=== PATIENT | male | born 1940 | race Caucasian/White ===

== ENCOUNTER → 2023-06-30 | Outpatient (CLI) | payer MEDICARE ==
[~2023-06-30] MED LIST: AMOXICILLIN 8751 TAB PO; ELIQUIS 5MG PO; GLUCOSAMINE & C1 TAB PO; MOTRIN 200200 MG/TAB PO; MULTI VITAMINS1 TAB PO; NORVASC 5MG5 MG/TAB PO; PAMELOR 10MG10 MG PO; PRAVACHOL 40MG40 MG PO; PRILOSEC 20MG20 MG PO; PRINIVIL2.5 MG PO; ROBINUL FORTE2 MG PO; ROXICODONE 55 MG/TAB PO; SINEMET 25/101 UDTAB PO; SYSTANE 0.4%-0.1 SOL OU
[2023-06-30 11:56] LABS: BASO % 0.4 % (0.0-2.0); EOS % 0.3 % (0.0-4.0); GRAN # 5.9 K/mm3 (1.4-6.5); GRAN % 87.5 % (42.2-75.2); LYMPH # 0.4 K/mm3 (1.2-3.4); LYMPH % 5.4 % (20.0-51.0); MEAN CELL VOLUME 94 fl (80.0-100.0); MEAN CORPUSCULAR HEMOGLOBIN 31 pg (27-31); MEAN CORPUSCULAR HGB CONC 33 g/dl (33.0-37.0); MEAN PLATELET VOLUME 11.1 fl (7.4-10.4); MONO # 0.4 K/mm3 (0.1-0.6); MONO % 6.1 % (1.7-9.3); PLATELET COUNT 132 K/mm3 (130-400); RED BLOOD COUNT 3.59 M/mm3 (4.20-5.60); REDCELL DISTRIBUTION WIDTH-CV 13.6 % (11.5-14.5)
[2023-06-30 11:57] LABS: HEMATOCRIT 33.7 % (42.0-52.0)
[2023-06-30 12:03] LABS: ALKALINE PHOSPHATASE 49 U/L (40-150); ANION GAP 12 mmol/L (7-16); AST,SGOT 16 U/L (5-34); BILIRUBIN,TOTAL 1.4 mg/dL (0.2-1.2); BLOOD UREA NITROGEN 47 mg/dL (8-26); CALCIUM 8.9 mg/dL (8.4-10.2); CARBON DIOXIDE 20 mmol/L (23-31); CHLORIDE 106 mmol/L (98-107); GLUCOSE 114 mg/dL (70-99); MAGNESIUM 1.9 mg/dL (1.6-2.6); POTASSIUM 4.9 mmol/L (3.5-4.5); SODIUM 138 mmol/L (136-145); TOTAL PROTEIN 6.5 gm/dL (6.2-8.1)
[2023-06-30 12:06] LABS: ALANINE AMINOTRANSFERASE < 6 U/L (0-55)
== END ==
LOC: ZCOL.LAB 11:45
DX: R53.1 Weakness (principal)

== ENCOUNTER 2023-12-03 16:29 | Inpatient (IN) | payer MEDICARE ==
[~2023-12-03] VITALS: Ht 177.8 cm; Wt 59.1 kg
[2023-12-03 16:45] LABS: URINE APPEARANCE CLEAR (CLEAR/HAZY); URINE BLOOD 3+ (NEGATIVE); URINE COLOR Dark Yellow (YELLOW); URINE GLUCOSE NEGATIVE (NEGATIVE); URINE KETONE TRACE (NEGATIVE); URINE NITRATE NEGATIVE (NEGATIVE); URINE PROTEIN(semi-quant) 2+ (NEGATIVE)
[2023-12-03] MEDS ORDERED: NS 1,000 ML IV ONE (16:45)
[2023-12-03 16:47] LABS: COLLECTION METHOD CATHETER
[2023-12-03] MEDS ORDERED: SINEMET 25/101 UDTAB PO (17:02)
[2023-12-03 17:15] LABS: PROTHROMBIN TIME 10.7 SECONDS (9.7-12.8)
[2023-12-03 17:17] LABS: PARTIAL THROMBOPLASTIN TIME 20.7 SECONDS (26.0-37.0)
[2023-12-03] MEDS ORDERED: ELIQUIS 5MG PO (17:18)
[2023-12-03] MEDS ORDERED: NORVASC 5MG5 MG/TAB PO (17:19)
[2023-12-03 17:28] LABS: ALBUMIN 4.1 gm/dL (3.4-4.8); BILIRUBIN,TOTAL 2.3 mg/dL (0.2-1.2); CALCIUM 9.8 mg/dL (8.4-10.2); CREATININE, serum 1.4 mg/dL (0.72-1.25); MAGNESIUM 2.1 mg/dL (1.6-2.6); POTASSIUM 4.4 mmol/L (3.5-4.5); TOTAL PROTEIN 7.2 gm/dL (6.2-8.1)
[2023-12-03 17:39] LABS: TROPONIN-I 0.034 ng/mL (0.00-0.033)
[2023-12-03] MEDS ORDERED: Ondansetron 4 MG/2 ML VIAL IV PRN (20:30)
[2023-12-03] MEDS ORDERED: Acetaminophen 325 MG TAB PO PRN (20:30)
[2023-12-03] MEDS ORDERED: Heparin 5,000 UNITS/ML 1 ML VIAL SQ SCH (21:00)
[2023-12-03] MEDS ORDERED: NS 1,000 ML IV SCH (21:00)
[2023-12-03 21:13] VITALS: BP 154/73; PULSE 72; TEMP 98.3
--- NOTE | 2023-12-03 22:49 | NUR ---
LAB CALLED WITH A TROPONIN OF 0.041. ANGELINA WATKINS NOTIFIED OF VALUE AT 10:45 PM. NO NEW ORDERS AT THIS TIME.
--- NOTE | 2023-12-03 23:06 | NUR ---
THE PATIENT ARRIVED VIA ED CART ACCOMPANIED BY ED STAFF. THE PATIENT WAS ORIENTED TO SELF, BUT COULD NOT STATE HIS BIRTHDAY. THE PATIENT DID NO FOLLOW COMMANDS. THE PATIENT KNEW HE WAS IN [place] AND THE PRESIDENTS NAME. THE PATIENT COULD NOT REMEMBER WHAT HAPPENED OR WHERE HE WAS EXACTLY. NO S/S OF ACUTE DISTRESS NOTED. CALL LIGHT WITHIN REACH, BED IN LOW POSTION, BED ALARM ON.
[2023-12-03 23:22] VITALS: BP 153/8; PULSE 75; TEMP 98.1
[2023-12-04] VITALS (11 sets, daily range): BP systolic 123–153; BP diastolic 63–85; PULSE 66–88; TEMP 98.1–99.6
[2023-12-04 07:01] LABS: BASO % 0.2 % (0.0-2.0); GRAN # 13.5 K/mm3 (1.4-6.5); GRAN % 89.8 % (42.2-75.2); HEMOGLOBIN 12.4 g/dl (13.5-18.0); LYMPH # 0.5 K/mm3 (1.2-3.4); LYMPH % 3.5 % (20.0-51.0); MEAN CELL VOLUME 89 fl (80.0-100.0); MEAN CORPUSCULAR HEMOGLOBIN 30 pg (27-31); MEAN CORPUSCULAR HGB CONC 34 g/dl (33.0-37.0); MEAN PLATELET VOLUME 11.2 fl (7.4-10.4); MONO # 0.9 K/mm3 (0.1-0.6); PLATELET COUNT 120 K/mm3 (130-400); RED BLOOD COUNT 4.11 M/mm3 (4.20-5.60); REDCELL DISTRIBUTION WIDTH-CV 13.9 % (11.5-14.5)
[2023-12-04 07:15] LABS: HEMATOCRIT 36.5 % (42.0-52.0)
[2023-12-04 07:18] LABS: ALBUMIN 3.2 gm/dL (3.4-4.8); BILIRUBIN,TOTAL 1.5 mg/dL (0.2-1.2); CREATININE, serum 1.25 mg/dL (0.72-1.25); POTASSIUM 4.1 mmol/L (3.5-4.5); TOTAL PROTEIN 5.9 gm/dL (6.2-8.1)
[2023-12-04 07:19] LABS: CHOLESTEROL RISK RATIO 1.7
[2023-12-04 07:39] LABS: THYROID STIMULATING HORMONE 1.342 uIU/mL (0.350-4.940)
--- NOTE | 2023-12-04 08:00 | NUR ---
PATIENT IS ORIENTED X3, NOT X4. PATIENT ORIENTED TO PERSON, PLACE AND SOME OF HIS SITUATION. PATIENT CONFUSED ON TIME OF DAY AND HIS WHOLE SITUATION IN THE HOSPITAL, FORGETFUL AT TIMES. NOTED LOW GRADE TEMP OF 99.6, GAVE PRN TYLENOL PER ORDERS WITH AM MEDS, SEE MAR. ALL OTHER VSS ON TELE. IV FLUIDS INFUSING VIA PUMP INTO RIGHT FORARM IV. NPO. REGALADO TO DD. UPPER CUTTER OUT REPORTED LOOSE BM X2. NOTIFIED HOSPITALIST OF TROP OF 0.050, NO NEW ORDERS. SKIN ISSUES NOTED, SEE SHIFT ASSESSMENT. PATIENT WAS FOUND DOWN FOR A UNKNOWN AMOUNT OF TIME. PATIENT IS WEAK, UNSTEADY AND HAS HX OF PARKINSONS. PT/OT CONSULTED. HEAD TO TOE ASSESSMENT COMPLETE. CALL LIGHT IN REACH. BED ALARM ON.
[2023-12-04] MEDS ORDERED: Metoprolol Tartrate 25 MG TAB PO SCH (09:00)
--- NOTE | 2023-12-04 17:00 | NUR ---
PATIENT HAD 3, SOFT-FORMED, MURRY-BARBARA COLORED STOOLS TODAY VIA BED DUNCAN. PATIENT WAS TO WEAK TO GET TO BEDSIDE COMMODE AND C/O CHRONIC PAIN IN HIS LEFT HIP THAT DOESN'T BOTHER HIM AT REST.
--- NOTE | 2023-12-04 17:45 | NUR ---
EKG OBTAINED BY RT AND HOSPITALIST NOTIFIED TO READ. EKG READS ACUTE ND. HOSPITALIST REVIEWING, NO ORDERS AT THIS TIME. PATIENT ASYMPTOMOMATIC. TROPONINES TRENDING, SEE LABS
[2023-12-04] MEDS ORDERED: Magnes Hydrox (MOM) 80 MG/ML 30 ML CUP PO ONE (18:00)
[2023-12-04] MEDS ORDERED: Sennosides/Docusate 8.6-50 MG TAB PO SCH ×2 (21:00)
[2023-12-05] VITALS (11 sets, daily range): BP systolic 131–149; BP diastolic 64–84; PULSE 68–91; TEMP 97.2–98.5
--- NOTE | 2023-12-05 00:58 | NUR ---
NURSING SHIFT ASSESSMENT COMPLETED. THE PATIENT WAS ORIENTED TO SELF, BUT NOT TO TIME, PLACE OR SITUATION. THE PTS BROTHER WAS AT THE BEDSIDE. THE PATIENT HAD A DINNER TRAY AT THE BEDSIDE AND WAS UNABLE TO FEED HIMSELF. THE CHICKEN BREAST SANDWICH WAS TO TOUGH FOR THE PATIENT TO EAT HIS DENTATION IS POOR. THE PATIENT ATE ALL OF THE GRAPES AND SOME APPLESAUCE AND DRANK ABOUT 1/2 OF AN ENSURE. GOOD ORAL CARE WAS PROVIDED PRIOR TO FEEDING THE PATIENT. THE PATIENT TOOK HIS PILLS WHOLE IN APPLESAUCE BETTER THAN ONE AT A TIME WITH A SIP OF WATER. THE PLAN OF CARE WAS SHARED WITH THE BROTHER. THE BED WAS IN THE LOW POSITION, BED ALARM ON, CALL LIGHT WITHIN REACH, HOWEVER I DON'T THINK THE PATIENT WILL USE THE CALL LIGHT.
[2023-12-05 07:54] LABS: HEMOGLOBIN 11.5 g/dl (13.5-18.0); MEAN CELL VOLUME 91 fl (80.0-100.0); MEAN CORPUSCULAR HEMOGLOBIN 31 pg (27-31); MEAN CORPUSCULAR HGB CONC 34 g/dl (33.0-37.0); MEAN PLATELET VOLUME 10.8 fl (7.4-10.4); PLATELET COUNT 95 K/mm3 (130-400); RED BLOOD COUNT 3.77 M/mm3 (4.20-5.60); REDCELL DISTRIBUTION WIDTH-CV 14.4 % (11.5-14.5)
[2023-12-05 07:58] LABS: HEMATOCRIT 34.1 % (42.0-52.0)
[2023-12-05 08:17] LABS: ALBUMIN 2.9 gm/dL (3.4-4.8); BILIRUBIN,TOTAL 1.6 mg/dL (0.2-1.2); CREATININE, serum 1.05 mg/dL (0.72-1.25); POTASSIUM 4.2 mmol/L (3.5-4.5); TOTAL PROTEIN 5.6 gm/dL (6.2-8.1)
[2023-12-05 08:48] LABS: TROPONIN-I 0.027 ng/mL (0.00-0.033)
[2023-12-05] MEDS ORDERED: Polyethylene Glycol 3350 17 GM PDS PO SCH (09:00)
[2023-12-05] MEDS ORDERED: 1/2 NS 1,000 ML IV SCH (09:15)
[2023-12-05] MEDS ORDERED: Amoxicillin/Clavulanate K+ 875/125 MG TAB PO SCH (09:17)
[2023-12-05 09:32] LABS: BAND 37 % (0-10); LYMPHOCYTE 2 % (20.0-51.0); METAMYELOCYTE 2 % (0-0); NEUTROPHILS 58 % (42.0-75.2); PLATELET ESTIMATE DECREASED (NORMAL)
--- NOTE | 2023-12-05 10:07 | NUR ---
Floor Tiling Professional met with patient and brother at bedside to discuss discharge planning. Patient oriented to person and place. Patient stated he doesn't remember falling. Brother verified demographic information. Patient resides at [facility] for the past 1-1/2 to 2 years, sees Dr. Sin as his PCP and uses [facility] mail order pharmacy. Patient next of kin and DPOA is brothaaron Wolf ([phone]). Patient is normally independent with ADLs, has a FWW that he uses as needed. PT recommendation is for IPR vs SNF. This SW spoke with Maryann at [facility] who reported they do not have male skilled bed avaiability at this time. Discharge: IPR vs SNF
--- NOTE | 2023-12-05 10:26 | NUR ---
PT LAYING IN BED UPON ENTERING, BROTHER AT BEDSIDE. ASSESSMENT DONE, MEDS GIVEN PER ORDER IN APPLESAUCE. PT DENIES PAIN BUT MOANING WHEN LEFT HAND IS TOUCHED. PT ABLE TO ANSWER ORIENTATION QUESTIONS BUT HAS CONFUSED SPEECH AND TRYING TO HAND HIS NURSE THINGS THAT ARENT IN HIS HAND. PT TALKING TO THIS NURSE WITH HIS EYES CLOSED. REGALADO DRAINING WITHOUT ISSUES. PT INCONTINENT OF STOOL. SACRUM RED, BARRIER CREAM APPLIED. NS @ 100 MLS/HR RUNNING IN RIGHT FOREARM. NS STOPPED AND CHANGED TO 1/2 NS @ 75 MLS/HR PER ORDER. ABRASIONS TO RIGHT CHEEK, MID STERNUM, AND RIGHT FLANK. PT HAS 1 BLISTER TO LATERAL SIDE OF EACH HEELM SKIN INTACT, MEPILEX PLACED AND HEELS FLOATED ON PILLOW. PT REPOSITIONED FROM HIS RIGHT SIDE TO LEFT SIDE. PT DENIES NEEDS. BROTHER ASKING ABOUT BROKEN BONES AND THIS NURSE NOTIFIED HIM OF ALL IMAGING DONE, NOTHING TO VISUALIZE LEFT HAND AND PT CURRENTLY DISPLAYING HAND PAIN. DR RUTH NOTIFIED AND HAND XRAY ORDERED. BED IN LOWEST POSITION, CALL LIGHT IN REACH, BED ALARM ON
--- NOTE | 2023-12-05 19:09 | NUR ---
REPORT GIVEN TO BRODIE CASTRO
[2023-12-06] VITALS (13 sets, daily range): BP systolic 126–176; BP diastolic 62–81; PULSE 68–92; TEMP 97.2–98.9
[2023-12-06 01:40] LABS: ARTERIAL BLD GAS O2 SATURATION 98.8 % (92-100); ARTERIAL BLD GAS TCO2 CT 21.6; ARTERIAL BLOOD GAS BASE EXCESS -0.2 (-2-2); ARTERIAL BLOOD GAS HCO3 20.8 meq/L (22-26); ARTERIAL BLOOD GAS PCO2 24.8 mmHg (35-45); ARTERIAL BLOOD GAS pH 7.54 (7.35-7.45)
[2023-12-06 01:41] LABS: ARTERIAL BLOOD GAS PO2 136.6 mmHg (80-100)
[2023-12-06 01:43] LABS: HEMOGLOBIN 11.7 g/dl (13.5-18.0); MEAN CELL VOLUME 90 fl (80.0-100.0); MEAN CORPUSCULAR HEMOGLOBIN 30 pg (27-31); MEAN CORPUSCULAR HGB CONC 33 g/dl (33.0-37.0); MEAN PLATELET VOLUME 10.6 fl (7.4-10.4); PLATELET COUNT 101 K/mm3 (130-400); RED BLOOD COUNT 3.91 M/mm3 (4.20-5.60); REDCELL DISTRIBUTION WIDTH-CV 14.4 % (11.5-14.5)
[2023-12-06 02:02] LABS: ALBUMIN 2.6 gm/dL (3.4-4.8); ALKALINE PHOSPHATASE 45 U/L (40-150); ANION GAP 8 mmol/L (7-16); AST,SGOT 42 U/L (5-34); BILIRUBIN,TOTAL 1.5 mg/dL (0.2-1.2); BLOOD UREA NITROGEN 29 mg/dL (8-26); CALCIUM 7.8 mg/dL (8.4-10.2); CARBON DIOXIDE 20 mmol/L (23-31); CHLORIDE 115 mmol/L (98-107); CREATININE, serum 0.96 mg/dL (0.72-1.25); GLUCOSE 116 mg/dL (70-99); POTASSIUM 4.3 mmol/L (3.5-4.5); SODIUM 143 mmol/L (136-145); TOTAL PROTEIN 5.5 gm/dL (6.2-8.1)
[2023-12-06 02:05] LABS: ALANINE AMINOTRANSFERASE < 6 U/L (0-55)
[2023-12-06 02:10] LABS: HEMATOCRIT 35.3 % (42.0-52.0)
[2023-12-06 02:58] LABS: BAND 32 % (0-10); EOSINOPHIL 1 % (0-4); LYMPHOCYTE 7 % (20.0-51.0); NEUTROPHILS 55 % (42.0-75.2)
[2023-12-06 02:59] LABS: PLATELET ESTIMATE DECREASED (NORMAL)
[2023-12-06] MEDS ORDERED: Albuterol/Ipratropium 3 MG-0.5 MG/3 ML Neb Soln IH PRN (04:15)
[2023-12-06] MEDS ORDERED: Albuterol/Ipratropium 3 MG-0.5 MG/3 ML Neb Soln IH SCH (08:00)
[2023-12-06] MEDS ORDERED: Gadoterate 15 ML VIAL IV ONE (12:32)
--- NOTE | 2023-12-06 14:36 | NUR ---
Web Development Instructor attended clinical rounds with the team, then met with patient and his brother Luciano to discuss discharge plan as [facility] does not have a SNF bed available. SW provided Medicare.gov list of SNF options and also discussed [facility] or [facility]. Patient would like to stay local and does not think he can tolerate the level of therapy at [facility]. Patient was agreeable to have referrals sent to [facility] and [facility]. [facility] faxed referrals to both. WHIT also submitted clinicals to [facility] for auth. Discharge Plan: SNF referrals pending
--- NOTE | 2023-12-06 14:40 | NUR ---
Temo at [facility] can accept referral pending auth.
--- NOTE | 2023-12-06 15:28 | NUR ---
Patient transported to MRI for swallow screen. x2 mod assist to stand/pivot. Confused conversion, able to follow commands. Fall precautions in place.
[2023-12-07 03:51] VITALS: BP 131/71; PULSE 71; TEMP 97.5
[2023-12-07 04:00] VITALS: BP_SYST 131
[2023-12-07 06:39] LABS: BASO % 0.3 % (0.0-2.0); EOS % 0.4 % (0.0-4.0); GRAN # 6.2 K/mm3 (1.4-6.5); GRAN % 84.6 % (42.2-75.2); HEMATOCRIT 30.4 % (42.0-52.0); HEMOGLOBIN 10.1 g/dl (13.5-18.0); LYMPH # 0.5 K/mm3 (1.2-3.4); LYMPH % 6.3 % (20.0-51.0); MEAN CELL VOLUME 91 fl (80.0-100.0); MEAN CORPUSCULAR HEMOGLOBIN 30 pg (27-31); MEAN CORPUSCULAR HGB CONC 33 g/dl (33.0-37.0); MEAN PLATELET VOLUME 10.6 fl (7.4-10.4); MONO # 0.6 K/mm3 (0.1-0.6); MONO % 7.9 % (1.7-9.3); PLATELET COUNT 103 K/mm3 (130-400); RED BLOOD COUNT 3.36 M/mm3 (4.20-5.60); REDCELL DISTRIBUTION WIDTH-CV 14.5 % (11.5-14.5)
[2023-12-07 06:53] LABS: CALCIUM 7.8 mg/dL (8.4-10.2); CREATININE, serum 0.87 mg/dL (0.72-1.25); POTASSIUM 3.8 mmol/L (3.5-4.5)
--- NOTE | 2023-12-07 08:00 | NUR ---
Pt laying in bed with brother, Luciano, at bedside. Pt finishing breakfast. Pt responds to name and occasionally opens eyes, but droswy. Pt partially oriented to person and place and forgetful. VSS. S1S2 and lungs are clear but diminished in lower lobes. Pt tolerating M&M diet with alicia thickened liquids. Administered meds crushed in applesauce as per EMAR. Alvarez in place with clear, yellow urine. Pt is incontinent of bowel. Pt is passing flatus, no BM this AM. Pt is heavy 2 assist. Pt has reddned abrasion on R cheek, mid-sternum, lower R rib, and R shoulder. Pt has blisters on bilateral heels with Mepalex pads. IV in R Forearm is patent with NS running at 50. Pt denies pain, headache, n/v.
[2023-12-07 08:10] VITALS: BP 143/69; PULSE 72; TEMP 98.1
[2023-12-07 09:00] VITALS: BP_SYST 143
--- NOTE | 2023-12-07 09:58 | NUR ---
Initial visit; Patient and gentleman helping Ned eat, thanked for coming by. Ned thanked for looking in on him and taking care of patients here at [facility]. " will 'Follow up."
--- NOTE | 2023-12-07 10:40 | NUR ---
Patient awake, alert, pleasantly confused. Agree with BRODIE Yu's assessment. Denies pain. Bed in lowest position with call light within reach. Fall precautions in place, bed alarm on.
--- NOTE | 2023-12-07 11:31 | NUR ---
Truck Driving verified via the [employer] Portal and with Temo at [facility] that they have secured authorization for a skilled stay. WHIT then contacted Noemi at [facility] to confirm they are still full at [place] and cannot accept today. WHIT attended clinical rounds with the team and patient is ready for discharge today. Since [facility] is full, patient is agreeable to [facility] SNF. WHIT presented and reviewed IM form with patient, who verbalized understanding and provided signature. WHIT placed form in chart and provided copy to patient. WHIT contacted [facility] and set up transport for 1430. WHIT provided transport time to patient and his brother, Luciano who is at bedside. WHIT then faxed discharge orders to Temo at [facility]. Discharge Plan; [facility]
--- NOTE | 2023-12-07 11:49 | NUR ---
Pt laying in bed. D/C'ed Alvarez cath per provider's orders. 245cc of clear, yellow urine in Alvarez. 8.5cc of water removed from balloon. Pt tolerated procedure well. Heel mepilex pads were falling off. Replaced with new pads. L heel has quater sized blister. Right heel has quater sized blister. Small abraisions on toes on both feet. ST came into room to work with Pt. Pt bui call light in reach and bed alarm on.
[2023-12-07 12:15] VITALS: BP 113/63; PULSE 68; TEMP 97.8
[2023-12-07 13:00] VITALS: BP_SYST 113
--- NOTE | 2023-12-07 13:12 | NUR ---
Called report to nurse at [facility].
--- NOTE | 2023-12-07 14:20 | NUR ---
Dressed Pt with clothes brought from home by brother. D/C'ed IV site. Pt had BM smear. Pericare completed. Pt transported to [facility] via . Brother, Luciano, took belongings.
== END 2023-12-07 14:20 | DRG 682 ==
LOC: COL.ER 16:29 → MEDICAL 20:14
PROVIDERS: Internal Medicine; Nurse Practitioner Family; Physician Assistant; ADMIT Internal Medicine
DX: N17.9 Acute kidney failure, unspecified (principal); G93.41 Metabolic encephalopathy; I21.A1 Myocardial infarction type 2; J69.0 Pneumonitis due to inhalation of food and vomit; J96.01 Acute respiratory failure with hypoxia; M62.82 Rhabdomyolysis; N18.2 Chronic kidney disease, stage 2 (mild); J01.90 Acute sinusitis, unspecified; G20.A1 Parkinson's disease without dyskinesia, without mention of fluctuations; E78.5 Hyperlipidemia, unspecified
CPT/HCPCS: A4314; A9575; G0378; J1644; J7030